=== PATIENT | female | born 1960 | race Caucasian/White ===

== ENCOUNTER → 2016-05-26 | Outpatient (CLI) | payer OTHER ==
[2016-05-26 13:38] LABS: ALT 46 U/L (9-52); AST 26 U/L (14-36); Alkaline Phosphatase 72 U/L (38-126); Anion Gap 10 mmol/L; Blood Urea Nitrogen 13 mg/dL (7-17); Calcium 9.9 mg/dL (8.4-10.2); Carbon Dioxide 28 mmol/L (22-30); Chloride 105 mmol/L (98-107); Cholesterol 194 mg/dL (<200); Glucose 99 mg/dL (74-99); HDL Cholesterol 75 mg/dL (40-60); Non-African American GFR(MDRD) >60 (>60 ml/min/1.73 sqM); Potassium 4.8 mmol/L (3.5-5.1); Sodium 143 mmol/L (137-145); Total Bilirubin 0.7 mg/dL (0.2-1.3); Total Protein 7.6 g/dL (6.3-8.2); Triglycerides 68 mg/dL (<150)
[2016-05-26 14:00] LABS: Basophils % (A) 0 %; CH 30.7; CHCM 33.3; Eosinophils # (A) 0.2 k/uL (0-0.7); Eosinophils % (A) 2 %; HCT 43.1 % (34.0-46.0); HDW 2.39; HGB 13.9 gm/dL (11.4-16.0); Luc # (Auto) 0.13; Luc % (Auto) 2; Lymphocytes # (A) 1.7 k/uL (1.0-4.8); Lymphocytes % (A) 19 %; MCH 29.8 pg (25.0-35.0); MCHC 32.3 g/dL (31.0-37.0); MCV 92.4 fL (80.0-100.0); Mean Platelet Volume 7.3; Monocytes # (A) 0.4 k/uL (0-1.0); Monocytes % (A) 4 %; Neutrophils # (A) 6.7 k/uL (1.3-7.7); Neutrophils % (A) 74 %; RBC 4.67 m/uL (3.80-5.40); WBC 9.1 k/uL (3.8-10.6); WBC (Perox) 9.26
== END | disposition home or self-care (01) ==
LOC: LABWHC1 12:19
PROVIDERS: ATTEND Physician Assistant
DX: E06.3 Autoimmune thyroiditis (principal); E03.9 Hypothyroidism, unspecified
CPT/HCPCS: 36415; 80053; 80061; 84439; 84443; 84480; 85025

== ENCOUNTER → 2016-12-14 | Outpatient (CLI) | payer OTHER ==
--- NOTE | 2016-12-15 14:36 | ECHOS ---
DATE OF SERVICE: 12/14/2016 TYPE OF REPORT: STRESS ECHOCARDIOGRAM INDICATIONS: Test is being done to evaluate cardiac status. The patient has history of chest pain and hypercholesterolemia. BASELINE HEART RATE: 75 BASELINE BLOOD PRESSURE: 161/93 MAXIMUM HEART RATE: 149 MAXIMUM BLOOD PRESSURE: 181/68 85% MPHR 141 100% MPHR 166 METS: 9.7 MAXIMUM STAGE REACHED: 3 TOTAL EXERCISE TIME: 8:00 Baseline EKG showed sinus rhythm with normal TN interval and normal QRS duration. Blood pressure at rest is 161/93 with pulse rate of 75. Patient walked on a [place] protocol for 8 minutes achieving a maximum rate of 149 with blood pressure of 180/61. Peak exercise showed about 0.5 to 1 mm J-point depression with upsloping ST segments in the inferolateral leads. These changes reverted back to normal within 3 to 4 minutes in the post exercise period. Patient did not experience any chest pain. FINAL IMPRESSION: 1. Borderline EKG changes which are not specific for ischemia. 2. Patient did not experience any chest pain. 3. No arrhythmias were detected. KARIME
== END ==
LOC: RADNMMAIN 10:55
PROVIDERS: ATTEND Family Medicine
DX: R07.9 Chest pain, unspecified (principal)
CPT/HCPCS: 93017

== ENCOUNTER → 2017-08-12 | Outpatient (CLI) | payer BC ==
--- NOTE | 2017-08-12 13:25 | CTL ---
EXAMINATION TYPE: CT Low Dose Lung DATE OF EXAM ORDERED: 08/12/2017 HISTORY: Personal history of tobacco usage. Lung cancer screening CT DLP: [address] CTDI: 2.52 mGy Automated exposure control for dose reduction was used. SCREENING VISIT: Initial. Baseline. COMPARISON: None TECHNIQUE: Low dose computed tomography scan was performed through the chest at 1 mm thick sections a nd reconstructed images in the coronal plane at [address] DIAGNOSTIC QUALITY: Satisfactory FINDINGS: LUNG NODULES: None. LUNGS: COPD: Severity: None Fibrosis: Severity: None Lymph nodes: No adenopathy Other findings: Right middle lobe pleural parenchymal scarring and minimal right basilar subsegmental atelectasis are noted. Lingular subsegmental atelectasis is also seen. RIGHT PLEURAL SPACE: Effusion: None Calcification: None Thickening: None Pneumothorax: None LEFT PLEURAL SPACE: Effusion: None Calcification: None Thickening: None Pneumothorax: None HEART: Heart Size: Nonenlarged. Ascending thoracic aorta is also within normal limits measuring 2.4 cm. Coronary calcification: Moderate in the left anterior descending coronary artery Pericardial effusion: None OTHER FINDINGS: Upper abdomen: Unremarkable limited unenhanced images Bony thorax: Minimal multilevel degenerative change Supraclavicular region: No adenopathy IMPRESSION: 1. No pulmonary nodules or adenopathy within the chest. 2. Moderate coronary calcifications in the left anterior descending coronary artery, marker for coron sean disease. FOLLOW UP CT CHEST RECOMMENDATION: Annual low dose chest CT screening exam is recommended as well as tobacco cessation. CT LUNG RAD: Lung-Rad 1 Negative
== END | disposition home or self-care (01) ==
LOC: RADCTMAIN 12:37
PROVIDERS: ATTEND Family Medicine
DX: Z12.2 Encounter for screening for malignant neoplasm of respiratory organs (principal); I25.10 Atherosclerotic heart disease of native coronary artery without angina pectoris; Z87.891 Personal history of nicotine dependence

== ENCOUNTER → 2017-10-21 | Outpatient (CLI) | payer BC ==
--- NOTE | 2017-10-22 11:35 | MM ---
Reason for exam: screening (asymptomatic). Last mammogram was performed 2 years ago. History: Patient is postmenopausal and is nulliparous. Taking estrogen for 7 months. Physical Findings: A clinical breast exam by your physician is recommended on an annual basis and results should be correlated with mammographic findings. MG Screening Mammo w CAD Bilateral CC and MLO view(s) were taken. Prior study comparison: October 07, 2015, bilateral MG 3d screening mammo w/cad. January 31, 2012, [facility] DIGITAL LEFT BREAST MAMMOGRAM w/CAD. There are scattered fibroglandular densities. No suspicious abnormality. No significant changes when compared with prior studies. ASSESSMENT: Negative, BI-RAD 1 RECOMMENDATION: Routine screening mammogram of both breasts in 1 year.
== END | disposition home or self-care (01) ==
LOC: RADMAMWWP 10:13
PROVIDERS: ATTEND Family Medicine
DX: Z12.31 Encounter for screening mammogram for malignant neoplasm of breast (principal); Z80.3 Family history of malignant neoplasm of breast
CPT/HCPCS: 77067

== ENCOUNTER → 2019-04-24 | Outpatient (CLI) | payer BC ==
--- NOTE | 2019-04-27 12:05 | MM ---
Reason for exam: screening (asymptomatic). Last mammogram was performed 1 year and 6 months ago. History: Patient is postmenopausal and is nulliparous. Took estrogen for 3 years beginning at age 54. Physical Findings: A clinical breast exam by your physician is recommended on an annual basis and results should be correlated with mammographic findings. MG 3D Screening Mammo W/Cad Bilateral CC and MLO view(s) were taken. Prior study comparison: October 21, 2017, bilateral MG screening mammo w CAD. October 07, 2015, bilateral MG 3d screening mammo w/cad. There are scattered fibroglandular densities. No suspicious abnormality. No significant changes when compared with prior studies. ASSESSMENT: Negative, BI-RAD 1 RECOMMENDATION: Routine screening mammogram of both breasts in 1 year.
== END ==
LOC: RADMAMWWP 11:04
PROVIDERS: ATTEND Family Medicine
DX: Z12.31 Encounter for screening mammogram for malignant neoplasm of breast (principal)
CPT/HCPCS: 77063; 77067

== ENCOUNTER → 2021-04-18 | Outpatient (CLI) | payer OTHER ==
--- NOTE | 2021-04-18 09:44 | BD ---
EXAMINATION TYPE: Axial Bone Density DATE OF EXAM: 04/18/2021 COMPARISON: NONE CLINICAL HISTORY: 61 YR OLD FEMALE.....ICD-10 CODE: Z78.0 POST MENOPAUSAL Height: 60.5 Weight: 157 FRAX RISK QUESTIONS: 3. Menopause before 45: AT 47 RISK FACTORS HISTORY OF: Diet low in dairy products/other sources of calcium: YES Postmenopausal woman: YES, AT ABOUT 47 YRS OLD Take estrogen and/or progesterone medications: YES, FOR ABOUT COUPLE MONTHS, THEN STOPPED Hyperparathyroidism: NO Adrenal Insufficiency: NO MEDICATIONS: Thyroid Medications: YES, SYNTHROID, FOR ABOUT 7 YRS Additional Medications: BP MEDS, STATIN FOR CHOLESTEROL, METFORMIN, VIT D AND CALCIUM Additional History: HYPERTENSION, CHOLESTEROL, DIABETIC, THYROID EXAM MEASUREMENTS: Bone mineral densitometry was performed using the [employer] System. Bone mineral density as measured about the Lumbar spine is: ----- L1-L4(G/cm2): 1.298 T Score Values are as follows: ----- L1: 1.0 ----- L2: 0.2 ----- L3: -0.4 ----- L4: 2.6 ----- L1-L4: 1.0 Bone mineral density FIRST DEXA......BASELINE STUDY Bone mineral density about the R hip (g/cm2): 0.954 Bone mineral density about the L hip (g/cm2): 1.026 T Score values are as follows: -----R Neck: -1.1 -----L Neck: -0.9 -----R Total: -0.4 -----L Total: 0.1 Bone mineral density BASELINE STUDY FRAX%s: THERE IS A 6.8% CHANCE FOR A MAJOR OSTEOPOROTIC FX AND A 0.4% FOR HIP......PROBABILITY FOR FX IN 10 YRS TIME IMPRESSION: No evidence for osteoporosis or osteopenia. NOTE: T-SCORE=SD OF THE YOUNG ADULT MEAN.
== END | disposition home or self-care (01) ==
LOC: RADMAMWWP 08:25
PROVIDERS: ATTEND Family Medicine
DX: Z12.31 Encounter for screening mammogram for malignant neoplasm of breast (principal); Z78.0 Asymptomatic menopausal state
CPT/HCPCS: 77063; 77067; 77080

== ENCOUNTER → 2022-04-19 | Outpatient (CLI) | payer OTHER ==
--- NOTE | 2022-04-20 09:16 | MM ---
Reason for Exam: Screening (asymptomatic). Last screening mammogram was performed 12 month(s) ago. Patient History: Menarche at age 14. Patient has no children. Left ovary removed at age 49. Right ovary removed at age 49. Hysterectomy at age 49. Postmenopausal. Estrogen for 3 years from age 54 until age 57. Risk Values: Charisse 5 year model risk: 1.6%. NCI Lifetime model risk: 8.1%. Prior Study Comparison: 10/21/2017 Bilateral Screening Mammogram, [facility]. 04/24/2019 Bilateral Screening Mammogram, [facility]. 04/18/2021 Bilateral Screening Mammogram, [facility]. Tissue Density: There are scattered fibroglandular densities. Findings: Analyzed By CAD. There is no suspicious group of microcalcifications or new suspicious mass in either breast. Benign calcifications within both breasts. No significant change from prior exams. Overall Assessment: Benign, BI-RAD 2 Management: Screening Mammogram of both breasts in 1 year. A clinical breast exam by your physician is recommended on an annual basis and results should be correlated with mammographic findings. Electronically signed and approved by: Alexander Rowe D.O.
== END | disposition home or self-care (01) ==
LOC: RADMAMWWP 09:03
PROVIDERS: ATTEND Family Medicine
DX: Z12.31 Encounter for screening mammogram for malignant neoplasm of breast (principal); Z78.0 Asymptomatic menopausal state
CPT/HCPCS: 77063; 77067

== ENCOUNTER 2023-04-18 10:20 | Inpatient (IN) | payer OTHER ==
--- NOTE | 2023-04-18 10:34 | ED ---
General Adult HPI - General Source: patient Mode of arrival: ambulatory Limitations: no limitations <Armani Pimentel - Last Filed: 04/18/23 10:54> <Hayden Curiel - Last Filed: 04/18/23 18:41> - General Stated complaint: Right side body Numbness Time Seen by Provider: 04/18/23 10:32 - History of Present Illness Initial comments: 63-year-old female presenting to the ED with a chief complaint of paresthesias. Patient states for the past 2 weeks has had numbness/tingling of her right arm and right leg. Also noticed having the same sensation in both of her feet. Also notes some back pain. Additionally she states over the past 2 weeks she has been feeling off balance. States she sometimes has been stumbling. Denies any recent injury or trauma. No incontinence or saddle anesthesia. (Armani Pimentel) 23-year-old female presenting with flank pain radiating into the right thigh with associated numbness. Patient also complains of numbness into her right arm. Her sister had noticed that her speech was somewhat slurred. Symptoms have been present for approximately 2 weeks. At the time my evaluation speech does seem slurred. She denies focal weakness in the time my evaluation. (Hayden Curiel) - Related Data Home Medications Medication Instructions Recorded Confirmed Levothyroxine Sodium [Levoxyl] 112 mcg PO DAILY 09/28/15 04/18/23 Losartan Potassium 100 mg PO DAILY 04/18/23 04/18/23 Metoprolol Tartrate [Lopressor] 25 mg PO DAILY 04/18/23 04/18/23 Rosuvastatin [Crestor] 20 mg PO DAILY 04/18/23 04/18/23 amLODIPine [Norvasc] 2.5 mg PO DAILY 04/18/23 04/18/23 hydroCHLOROthiazide [Hydrodiuril] 25 mg PO DAILY 04/18/23 04/18/23 metFORMIN HCL [Glucophage] 500 mg PO BID 04/18/23 04/18/23 Allergies Allergy/AdvReac Type Severity Reaction Status Date / Time No Known Allergies Allergy Verified 04/18/23 17:19 Review of Systems ROS Other: All systems not noted in ROS Statement are negative. <Armani Pimentel - Last Filed: 04/18/23 10:54> ROS Other: All systems not noted in ROS Statement are negative. <Hayden Curiel - Last Filed: 04/18/23 18:41> ROS Statement: Those systems with pertinent positive or pertinent negative responses have been documented in the HPI. Past Medical History Past Medical History: Hyperlipidemia, Hypertension, Thyroid Disorder History of Any Multi-Drug Resistant Organisms: None Reported Past Surgical History: Hysterectomy Past Psychological History: No Psychological Hx Reported Smoking Status: Never smoker Past Alcohol Use History: None Reported Past Drug Use History: None Reported <Armani Pimentel - Last Filed: 04/18/23 10:54> General Exam Limitations: no limitations <Armani Pimentel - Last Filed: 04/18/23 10:54> General appearance: alert, in no apparent distress Head exam: Present: atraumatic, normocephalic Eye exam: Present: normal appearance, PERRL ENT exam: Present: normal exam Neck exam: Present: normal inspection. Absent: tenderness, meningismus Respiratory exam: Present: normal lung sounds bilaterally. Absent: respiratory distress, wheezes Cardiovascular Exam: Present: regular rate, normal rhythm GI/Abdominal exam: Present: soft. Absent: distended, tenderness, guarding Extremities exam: Present: normal inspection Neurological exam: Present: alert, motor sensory deficit (Mild dysarthria, NIH of 1) Psychiatric exam: Present: normal affect, normal mood Skin exam: Present: warm, dry, intact. Absent: cyanosis, diaphoretic <Hayden Curiel - Last Filed: 04/18/23 18:41> Course Vital Signs 04/18/23 04/18/23 10:26 17:02 Temperature 97.7 F Pulse Rate 62 55 L Respiratory 18 14 Rate Blood Pressure 152/83 155/84 O2 Sat by Pulse 97 99 Oximetry Medical Decision Making <Armani Pimentel - Last Filed: 04/18/23 10:54> - Lab Data Result diagrams: 04/18/23 17:00 04/18/23 10:45 <Hayden Curiel - Last Filed: 04/18/23 18:41> - Medical Decision Making Quicknote portion performed. Signed Armani Pimentel PA-C (Armani Pimentel) Was pt. sent in by a medical professional or institution ([facility], [facility], urgent care, hospital, or fdc...) When possible be specific @ -No Did you speak to anyone other than the patient for history (EMS, parent, family, police, friend...)? What history was obtained from this source @ -No Did you review nursing and triage notes (agree or disagree)? Why? @ -I reviewed and agree with nursing and triage notes Were old charts reviewed (outside hosp., previous admission, EMS record, old EKG, old radiological studies, urgent care reports/EKG's, fdc records)? Report findings @ -No old charts were reviewed Differential Diagnosis (chest pain, altered mental status, abdominal pain women, abdominal pain men, vaginal bleeding, weakness, fever, dyspnea, syncope, headache, dizziness, GI bleed, back pain, seizure, CVA, palpatations, mental health, musculoskeletal)? @ -[Differential CVA Ischemic stroke, hemorrhagic stroke, brain tumor, atypical migraine, Wernicke's encephalopathy, seizure, multiple sclerosis, meningitis, encephalitis, hypoglycemia, Guillain-Garcia, electrolytes disturbance, myasthenia gravis.... This is not meant to be an all-inclusive list EKG interpreted by me (3pts min.). @ -E.g.: Sinus bradycardia rate of 57, DC interval 157, QRS duration 90, QTC [address] segment elevation. X-rays interpreted by me (1pt min.). @ -None done CT interpreted by me (1pt min.). @ -[CT brain negative for intracranial hemorrhage or mass effect, CT angiogram showing left MCA occlusion U/S interpreted by me (1pt. min.). @ -None done What testing was considered but not performed or refused? (CT, X-rays, U/S, labs)? Why? @ -None What meds were considered but not given or refused? Why? @ -None Did you discuss the management of the patient with other professionals (professionals i.e. [facility], [employer] [facility], lab, RT, psych nurse, social services analyst, transition mgr rn, teacher, public safety officer, case making machine operator)? Give summary EMH Was smoking cessation discussed for >3mins.? @ -No Was critical care preformed (if so, how long)? @ -No Were there social determinants of health that impacted care today? How? (Homelessness, low income, unemployed, alcoholism, drug addiction, transportation, low edu. Level, literacy, decrease access to med. care, custodial, rehab)? @ -No Was there de-escalation of care discussed even if they declined (Discuss DNR or withdrawal of care, Hospice)? DNR status @ -No What co-morbidities impacted this encounter? (DM, HTN, Smoking, COPD, CAD, Cancer, CVA, ARF, Chemo, Hep., AIDS, mental health diagnosis, sleep apnea, morbid obesity)? @ -None Was patient admitted / discharged? Hospital course, mention meds given and route, prescriptions, significant lab abnormalities, going to OR and other pertinent info. @ -63-year-old female presents with right-sided numbness, mild dysarthria. Patient states that her sister noticed that dysarthria on and that the remainder of her symptoms have been present for approximately 2 weeks. She's taken for CT and CT angiography. CT is negative for intracranial hemorrhage or mass effect, CT angiography shows a left MCA occlusion. Given the duration of her symptoms she is not a candidate for intervention or TPA. She will be admitted for further stroke evaluation. He started on full strength aspirin and statin. Undiagnosed new problem with uncertain prognosis? @ -No Drug Therapy requiring intensive monitoring for toxicity (Heparin, Nitro, Insulin, Cardizem)? @ -No Were any procedures done? @ -No Diagnosis/symptom? @CVA Acute, or Chronic, or Acute on Chronic? @ -Acute Uncomplicated (without systemic symptoms) or Complicated (systemic symptoms)? @ -Complicated Side effects of treatment? @ -No Exacerbation, Progression, or Severe Exacerbation? @ -No Poses a threat to life or bodily function? How? (Chest pain, USA, SD, pneumonia, PE, COPD, DKA, ARF, appy, cholecystitis, CVA, Diverticulitis, Homicidal, Suicidal, threat to staff... and all critical care pts) @ -[Yes, CVA (Hayden Curiel) - Lab Data Lab Results 04/18/23 04/18/23 04/18/23 Range/Units 10:45 10:45 10:45 WBC (3.8-10.6) k/uL RBC (3.80-5.40) m/uL Hgb (11.4-16.0) gm/dL Hct (34.0-46.0) % MCV (80.0-100.0) fL MCH (25.0-35.0) pg MCHC (31.0-37.0) g/dL RDW (11.5-15.5) % Plt Count (150-450) k/uL MPV Neutrophils % % Lymphocytes % % Monocytes % % Eosinophils % % Basophils % % Neutrophils # (1.3-7.7) k/uL Lymphocytes # (1.0-4.8) k/uL Monocytes # (0-1.0) k/uL Eosinophils # (0-0.7) k/uL Basophils # (0-0.2) k/uL PT (10.0-12.5) sec INR (<1.2) APTT (22.0-30.0) sec Sodium 138 (137-145) mmol/L Potassium 4.3 (3.5-5.1) mmol/L Chloride 97 L (98-107) mmol/L Carbon Dioxide 25 (22-30) mmol/L Anion Gap 16 mmol/L BUN 21 H (7-17) mg/dL Creatinine 0.59 (0.52-1.04) mg/dL Est GFR (CKD-EPI)AfAm >90 (>60 ml/min/1.73 sqM) Est GFR (CKD-EPI)NonAf >90 (>60 ml/min/1.73 sqM) Glucose 122 H (74-99) mg/dL Calcium 9.9 (8.4-10.2) mg/dL Total Bilirubin 0.7 (0.2-1.3) mg/dL AST 36 (14-36) U/L ALT 26 (4-34) U/L Alkaline Phosphatase 75 (38-126) U/L Troponin I <0.012 (0.000-0.034) ng/mL Total Protein 7.8 (6.3-8.2) g/dL Albumin 4.6 (3.5-5.0) g/dL Urine Color Colorless Urine Appearance Clear (Clear) Urine pH 5.5 (5.0-8.0) Ur Specific [place] 1.015 (1.001-1.035) Urine Protein Negative (Negative) Urine Glucose (UA) Negative (Negative) Urine Ketones Negative (Negative) Urine Blood Negative (Negative) Urine Nitrite Negative (Negative) Urine Bilirubin Negative (Negative) Urine Urobilinogen <2.0 (<2.0) mg/dL Ur Leukocyte Esterase Moderate H (Negative) Urine RBC 2 (0-5) /hpf Urine WBC 7 H (0-5) /hpf Ur Squamous Epith Cells 5 H (0-4) /hpf Urine Mucus Rare H (None) /hpf 04/18/23 04/18/23 Range/Units 17:00 17:00 WBC 9.3 (3.8-10.6) k/uL RBC 5.18 (3.80-5.40) m/uL Hgb 15.4 (11.4-16.0) gm/dL Hct 45.1 (34.0-46.0) % MCV 87.1 (80.0-100.0) fL MCH 29.7 (25.0-35.0) pg MCHC 34.1 (31.0-37.0) g/dL RDW 12.8 (11.5-15.5) % Plt Count 344 (150-450) k/uL MPV 8.2 Neutrophils % 61 % Lymphocytes % 28 % Monocytes % 6 % Eosinophils % 3 % Basophils % 1 % Neutrophils # 5.7 (1.3-7.7) k/uL Lymphocytes # 2.6 (1.0-4.8) k/uL Monocytes # 0.5 (0-1.0) k/uL Eosinophils # 0.3 (0-0.7) k/uL Basophils # 0.1 (0-0.2) k/uL PT 10.2 (10.0-12.5) sec INR 0.9 (<1.2) APTT 24.1 (22.0-30.0) sec Sodium (137-145) mmol/L Potassium (3.5-5.1) mmol/L Chloride (98-107) mmol/L Carbon Dioxide (22-30) mmol/L Anion Gap mmol/L BUN (7-17) mg/dL Creatinine (0.52-1.04) mg/dL Est GFR (CKD-EPI)AfAm (>60 ml/min/1.73 sqM) Est GFR (CKD-EPI)NonAf (>60 ml/min/1.73 sqM) Glucose (74-99) mg/dL Calcium (8.4-10.2) mg/dL Total Bilirubin (0.2-1.3) mg/dL AST (14-36) U/L ALT (4-34) U/L Alkaline Phosphatase (38-126) U/L Troponin I (0.000-0.034) ng/mL Total Protein (6.3-8.2) g/dL Albumin (3.5-5.0) g/dL Urine Color Urine Appearance (Clear) Urine pH (5.0-8.0) Ur Specific [place] (1.001-1.035) Urine Protein (Negative) Urine Glucose (UA) (Negative) Urine Ketones (Negative) Urine Blood (Negative) Urine Nitrite (Negative) Urine Bilirubin (Negative) Urine Urobilinogen (<2.0) mg/dL Ur Leukocyte Esterase (Negative) Urine RBC (0-5) /hpf Urine WBC (0-5) /hpf Ur Squamous Epith Cells (0-4) /hpf Urine Mucus (None) /hpf Disposition <Armani Pimentel - Last Filed: 04/18/23 10:54> Is patient prescribed a controlled substance at d/c from ED?: No Time of Disposition: 18:41 <Hayden Curiel - Last Filed: 04/18/23 18:41> Clinical Impression: Cerebrovascular accident (CVA) Disposition: ADMITTED IP TO THIS HOSP Condition: Stable Referrals: Rosie Martinez DO [Primary Care Provider] - 1-2 days
[2023-04-18 11:58] LABS: ALT 26 U/L (4-34); AST 36 U/L (14-36); African American GFR (CKD) >90 (>60 ml/min/1.73 sqM); Albumin 4.6 g/dL (3.5-5.0); Alkaline Phosphatase 75 U/L (38-126); Anion Gap 16 mmol/L; Blood Urea Nitrogen 21 mg/dL (7-17); Calcium 9.9 mg/dL (8.4-10.2); Carbon Dioxide 25 mmol/L (22-30); Chloride 97 mmol/L (98-107); Glucose 122 mg/dL (74-99); Non-African American GFR(CKD) >90 (>60 ml/min/1.73 sqM); Sodium 138 mmol/L (137-145); Total Bilirubin 0.7 mg/dL (0.2-1.3); Total Protein 7.8 g/dL (6.3-8.2)
[2023-04-18 12:23] LABS: Potassium 4.3 mmol/L (3.5-5.1)
--- NOTE | 2023-04-18 16:46 | XR ---
EXAMINATION TYPE: XR thoracic spine 3 views complete DATE OF EXAM: 04/18/2023 Comparison: None Clinical History: 63-year-old female with upper back pain and right-sided weakness Findings: 12 thoracic vertebral bodies. All pedicles are visualized. Moderate degenerative disc disease and end plate spondylosis throughout the mid thoracic spine. Vertebral body heights are preserved and alignme nt is maintained. Impression: Moderate degenerative disc disease throughout especially mid thoracic spine. No vertebral compression collapse or malalignment.
[2023-04-18 17:13] LABS: Basophils # (A) 0.1 k/uL (0-0.2); Basophils % (A) 1 %; Eosinophils # (A) 0.3 k/uL (0-0.7); Eosinophils % (A) 3 %; HCT 45.1 % (34.0-46.0); HGB 15.4 gm/dL (11.4-16.0); Lymphocytes # (A) 2.6 k/uL (1.0-4.8); Lymphocytes % (A) 28 %; MCH 29.7 pg (25.0-35.0); MCHC 34.1 g/dL (31.0-37.0); MCV 87.1 fL (80.0-100.0); Mean Platelet Volume 8.2; Monocytes # (A) 0.5 k/uL (0-1.0); Monocytes % (A) 6 %; Neutrophils # (A) 5.7 k/uL (1.3-7.7); Neutrophils % (A) 61 %; Platelet Count 344 k/uL (150-450); RBC 5.18 m/uL (3.80-5.40); RDW 12.8 % (11.5-15.5); WBC 9.3 k/uL (3.8-10.6)
[2023-04-18 17:15] LABS: Appearance,Urine Clear (Clear); Bilirubin,Urine Negative (Negative); Blood,Urine Negative (Negative); Color,Urine Colorless; Glucose,Urine (UA) Negative (Negative); Ketones,Urine Negative (Negative); Leukocyte Esterase,Urine Moderate (Negative); Mucus,Urine Rare /hpf; Nitrite,Urine Negative (Negative); PH, Urine 5.5 (5.0-8.0); Protein,Urine Negative (Negative); RBC,Urine 2 /hpf (0-5); Specific Gravity,Urine 1.015 (1.001-1.035); Squamous Epithelial Cell,Urine 5 /hpf (0-4); Urobilinogen,Urine <2.0 mg/dL (<2.0); WBC,Urine 7 /hpf (0-5)
[2023-04-18 17:29] LABS: INR 0.9 (<1.2); Partial Thromboplastin Time 24.1 sec (22.0-30.0); Prothrombin Time 10.2 sec (10.0-12.5)
--- NOTE | 2023-04-18 17:59 | CT ---
EXAMINATION TYPE: CT brain wo con DATE OF EXAM: 04/18/2023 COMPARISON: None HISTORY: 63-year-old female with paresthesias, weakness, dizziness TECHNIQUE: Examination was done in axial plane without intravenous contrast. Coronal and sagittal r econstructions performed. CT DLP: 1089.6 mGycm Automated exposure control for dose reduction was used. FINDINGS: There is no evidence of acute intracranial hemorrhage, acute ischemic changes, mass, mass-effect, or extra-axial fluid collection. There is no effacement of cerebral sulci or basal subarachnoid cister ns. There is no hydrocephalus. There is no midline shift. Orozco-white matter distinction is preserv ed. 1.2 cm mucosal retention cyst left maxillary sinus. Orbits and globes are intact. Mastoid air cells w ell pneumatized. Trace mucosal thickening ethmoid air cells. IMPRESSION: No acute intracranial abnormality seen.
--- NOTE | 2023-04-18 18:25 | CT ---
EXAMINATION TYPE: CT angio head neck DATE OF EXAM: 04/18/2023 COMPARISON: CT scan same day HISTORY: 63-year-old female weakness, dizziness TECHNIQUE: Contiguous axial scanning of the head and neck performed with IV Contrast, patient injecte d with 65 cc mL of Isovue 300. Coronal and sagittal MIP reconstructions performed. 3-D reconstruction s generated on a dedicated independent workstation. CT DLP: 386.7 mGycm Automated exposure control for dose reduction was used. FINDINGS: Neck: Mild emphysematous changes in the visualized upper lungs. Conventional branching anatomy. There appears to be mild narrowing at the origin of the brachiocephal ic artery. The left vertebral artery is slightly more dominant but both vertebral arteries are otherwise patent throughout the course. The bilateral common carotid arteries are patent. There is mild noncalcified plaque along the right carotid bulb contributing to mild, less than 25% pr oximal right ICA narrowing. NASCET criteria was utilized. Otherwise, the bilateral internal carotid arteries are patent. Head: Dominant left vertebral artery. Otherwise, both vertebral and basilar arteries as well as the remaind er of the posterior circulation appear patent. Scattered mild atherosclerotic calcifications throughout the carotid siphon. There is cut off of the left MCA at its origin. Remainder of the anterior circulation appears patent. No aneurysmal change is seen. IMPRESSION: HEAD: 1. LEFT MCA OCCLUSION AT ITS ORIGIN. CALLED TO DR. REYES IN THE ER AT 6:20 PM. NECK: 2. MILD, LESS THAN 25% PROXIMAL RIGHT ICA STENOSIS.
[2023-04-18] MEDS ORDERED: ASPIRIN 325 MG TAB PO STA (18:30)
[2023-04-18] MEDS: SODIUM CHLORIDE 0.9% 1,000 ML IV SCH (18:56)
[2023-04-18] MEDS: ATORVASTATIN 80 MG TAB PO SCH (21:59)
--- NOTE | 2023-04-19 07:20 | P.HPIM ---
History of Present Illness This is a pleasant 63 years old female with past medical history of hypertension and hyperlipidemia She presents because of numbness in her right side including both right arm and leg that's going on for 2 weeks on and off associated with back pain and occasional left foot drop while she is working as she describes She denies weakness on the right side, she denies double vision, blurred vision or speech problem. No headache or dizziness. She went to see her PCP who referred her to the hospital Currently she has only numbness in her right hand She denies change in urine or bowel habits or fever. She denies smoking alcohol or illicit drugs. Vitals are stable Labs reviewed she has unremarkable CBC, INR, BMP and liver enzymes. 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 EKG shows sinus bradycardia at [address] T changes, QTC 41. Thoracic spine moderate degenerative disc disease with no compression of fracture Review of Systems Review of systems CONSTITUTIONAL: No fever, no malaise, no fatigue. HEENT: No recent visual problems or hearing problems. Denied any sore throat. CARDIOVASCULAR: No orthopnea, PND, no palpitations, no syncope. PULMONARY: No shortness of breath, no cough, no hemoptysis. GASTROINTESTINAL: No diarrhea, no nausea, no vomiting, no abdominal pain. Normoactive bowel sounds. NEUROLOGICAL: No headaches, no weakness, no numbness. HEMATOLOGICAL: Denies any bleeding or petechiae. GENITOURINARY: Denies any burning micturition, frequency, or urgency. MUSCULOSKELETAL/RHEUMATOLOGICAL: Denies any joint pain, swelling, or any muscle pain. ENDOCRINE: Denies any polyuria or polydipsia. Past Medical History Past Medical History: Hyperlipidemia, Hypertension, Thyroid Disorder History of Any Multi-Drug Resistant Organisms: None Reported Past Surgical History: Hysterectomy Past Psychological History: No Psychological Hx Reported Smoking Status: Never smoker Past Alcohol Use History: None Reported Past Drug Use History: None Reported Medications and Allergies Home Medications Medication Instructions Recorded Confirmed Type Levothyroxine Sodium [Levoxyl] 112 mcg PO DAILY 09/28/15 04/18/23 History Losartan Potassium 100 mg PO DAILY 04/18/23 04/18/23 History Metoprolol Tartrate [Lopressor] 25 mg PO DAILY 04/18/23 04/18/23 History Rosuvastatin [Crestor] 20 mg PO DAILY 04/18/23 04/18/23 History amLODIPine [Norvasc] 2.5 mg PO DAILY 04/18/23 04/18/23 History hydroCHLOROthiazide [Hydrodiuril] 25 mg PO DAILY 04/18/23 04/18/23 History metFORMIN HCL [Glucophage] 500 mg PO BID 04/18/23 04/18/23 History Allergies Allergy/AdvReac Type Severity Reaction Status Date / Time No Known Allergies Allergy Verified 04/18/23 17:19 Physical Exam Vitals: Vital Signs Temp Pulse Resp BP Pulse Ox 04/19/23 05:00 59 L 18 132/75 92 L 04/18/23 22:17 66 16 121/60 99 04/18/23 21:20 60 16 169/83 98 04/18/23 17:02 55 L 14 155/84 99 04/18/23 10:26 97.7 F 62 18 152/83 97 Intake and Output 04/18/23 04/19/23 04/19/23 22:59 06:59 14:59 Other: Weight 72.575 kg GENERAL: The patient is alert and oriented x3, not in any acute distress. Well developed, well nourished. HEENT: Pupils are round and equally reacting to light. EOMI. No scleral icterus. No conjunctival pallor. Normocephalic, atraumatic. No pharyngeal erythema. No thyromegaly. CARDIOVASCULAR: S1 and S2 present. No murmurs, rubs, or gallops. PULMONARY: Chest is clear to auscultation, no wheezing , no crackles. ABDOMEN: Soft, nontender, nondistended, normoactive bowel sounds. No palpable organomegaly. MUSCULOSKELETAL: No joint swelling or deformity. EXTREMITIES: No cyanosis, clubbing, or pedal edema. NEUROLOGICAL: Gross neurological examination did not reveal any focal deficits. SKIN: No rashes. no petechiae. Results CBC & Chem 7: 04/18/23 17:00 04/18/23 10:45 Labs: Abnormal Lab Results - Last 24 Hours (Table) 04/18/23 04/18/23 Range/Units 10:45 10:45 Chloride 97 L (98-107) mmol/L BUN 21 H (7-17) mg/dL Glucose 122 H (74-99) mg/dL Ur Leukocyte Esterase Moderate H (Negative) Urine WBC 7 H (0-5) /hpf Ur Squamous Epith Cells 5 H (0-4) /hpf Urine Mucus Rare H (None) /hpf Thrombosis Risk Factor Assmnt - Choose All That Apply Any of the Below Risk Factors Present?: Yes Each Factor Represents 1 point: Obesity (BMI >25) Other Risk Factors: Yes Each Risk Factor Represents 2 Points: Age 61-74 years Each Risk Factor Represents 5 Points: Stroke (< 1 month) Thrombosis Risk Factor Assessment Total Risk Factor Score: 8 Thrombosis Risk Factor Assessment Level: High Risk Assessment and Plan Assessment: Right arm and leg numbness with occlusion of the left MCA artery at its origin Back pain with x-ray showing degenerative disc disease Hypertension Hyperlipidemia Plan: Continue with aspirin 325 mg Resume metoprolol for now and monitor blood pressure Follow-up MRI of the brain and echocardiogram Neurology consult Check TSH and hemoglobin A1c Labs and medication were reviewed.. Continue same treatment. Continue with sym ptomatic treatment. Resume home medication. Monitor labs and vitals. DVT and GI prophylaxis. Further recommendations as per clinical course of the patient DVT prophylaxis: Subcutaneous heparin GI Prophylaxis: Pepcid PT/OT: Pending Prognosis is guarded
[2023-04-19 07:46] LABS: African American GFR (CKD) >90 (>60 ml/min/1.73 sqM); Anion Gap 12 mmol/L; Blood Urea Nitrogen 16 mg/dL (7-17); Calcium 9.6 mg/dL (8.4-10.2); Carbon Dioxide 26 mmol/L (22-30); Chloride 101 mmol/L (98-107); Glucose 163 mg/dL (74-99); Non-African American GFR(CKD) >90 (>60 ml/min/1.73 sqM); Potassium 3.5 mmol/L (3.5-5.1); Sodium 139 mmol/L (137-145)
[2023-04-19 08:53] LABS: Chol/HDL Ratio 4.29 Ratio; LDL Cholesterol,Calculated 103.1 mg/dL (0.0-131.0)
[2023-04-19] MEDS ORDERED: metFORMIN 500 MG TAB PO SCH (09:00)
[2023-04-19] MEDS: ASPIRIN 325 MG TAB PO SCH (10:49)
[2023-04-19] MEDS: METOPROLOL TARTRATE 25 MG TAB PO SCH (10:49)
[2023-04-19] MEDS: LEVOTHYROXINE 112 MCG TAB PO SCH (10:49)
[2023-04-19] MEDS: HEPARIN SODIUM,PORCINE 5,000 UNIT/ML 1 ML VIAL SQ SCH ×2 (10:51→20:41)
[2023-04-19] MEDS: FAMOTIDINE 20 MG/2 ML VIAL IV SCH ×2 (10:53→20:41)
--- NOTE | 2023-04-19 12:15 | P.CNNES ---
History of Present Illness Consult date: 04/19/23 Requesting physician: Hayden Curiel Reason for Consult: cva History of Present Illness: This is a 63-year-old woman presented emergency department because of right- sided numbness, unsteady gait for the past 2 weeks. Patient noticed about 2 weeks ago she had sudden onset right-sided numbness with the tingling but mostly numbness as well as that she felt her gait was unsteady. She's having a posterior mid back pain that feels that the sharp pain. She also feels the top of the left foot at the skating on the floor when she walks. She denies of any urinary incontinence or bowel incontinence. Denies of any back pain. Denies of any visual disturbance, focal weakness. Denies of any neck pain. Denies of any fever. Denies of having any history of stroke. She is not on any antiplatelet. She stated that she did not seek any medical attention because of multiple reason in which an she was told I one of her friends that could be medication related from the statin and another was that she was trying to avoid physicians. Some of the workup during his hospital visit consisted of: CBC with differential is unremarkable Lipid panel is tried to start 190, cholesterol is 184, LDLs 103 and HDL is 42 TSH is 3.560 Hemoglobin A1c is 7.70. Calcium, sodium creatinine are within normal limits CT of the head is reported as no acute intracranial abnormality seen. I personally reviewed the CT and agree with the report. CT angiography of the neck is reported as mild less than 25 walks a normal right ICA stenosis CT angiography of the head is reported as left MCA occlusion at the origin. Per ED team patient is not a candidate for TPA because of duration of her symptoms. She according to her her symptoms began 2 weeks ago and the risk outweighed the benefits. Also per the ED team, no intervention because of the duration of the symptoms. Review of Systems Review of system: The 12 point system was reviewed and apparent positive and negative per HPI. Past Medical History Past Medical History: Hyperlipidemia, Hypertension, Thyroid Disorder History of Any Multi-Drug Resistant Organisms: None Reported Past Surgical History: Hysterectomy Past Psychological History: No Psychological Hx Reported Smoking Status: Never smoker Past Alcohol Use History: None Reported Past Drug Use History: None Reported Medications and Allergies Home Medications Medication Instructions Recorded Confirmed Type Levothyroxine Sodium [Levoxyl] 112 mcg PO DAILY 09/28/15 04/18/23 History Losartan Potassium 100 mg PO DAILY 04/18/23 04/18/23 History Metoprolol Tartrate [Lopressor] 25 mg PO DAILY 04/18/23 04/18/23 History Rosuvastatin [Crestor] 20 mg PO DAILY 04/18/23 04/18/23 History amLODIPine [Norvasc] 2.5 mg PO DAILY 04/18/23 04/18/23 History hydroCHLOROthiazide [Hydrodiuril] 25 mg PO DAILY 04/18/23 04/18/23 History metFORMIN HCL [Glucophage] 500 mg PO BID 04/18/23 04/18/23 History Allergies Allergy/AdvReac Type Severity Reaction Status Date / Time No Known Allergies Allergy Verified 04/18/23 17:19 Physical Examination - Vital Signs Vital Signs: Vital Signs Pulse Resp BP Pulse Ox 04/19/23 10:45 63 18 136/85 95 04/19/23 05:00 59 L 18 132/75 92 L 04/18/23 22:17 66 16 121/60 99 04/18/23 21:20 60 16 169/83 98 04/18/23 17:02 55 L 14 155/84 99 Intake and Output 04/18/23 04/19/23 04/19/23 22:59 06:59 14:59 Other: Weight 72.575 kg GENERAL: The patient is lying in bed and is not in acute distress. NEUROLOGICAL: Higher mental function: The patient is awake, alert, oriented to self, place and time. Patient is following commands. No aphasia and no neglect. Cranial nerves: The pupils are round, equal and reactive to light and accommodation. Visual crane are full to confrontation throughout. Extraocular movement is intact no nystagmus is noted. Facial sensation is normal to touch throughout. The facial strength is normal throughout. Hearing is normal bilaterally to hand rub. Tongue is midline and moved [id number] without any difficulty. No dysarthria is noted. Shoulder shrug is normal bilaterally. Motor: Unable to assess the gait since patient has so many wires on her. The strength is 5 over 5 throughout. Normal tone and bulk. Cerebellum: Normal finger to nose bilaterally. Sensation: Sensation is decrease to touch in the right lower extremity. Reflexes (right/left):2+ Plantars are downgoing bilaterally. Results - Laboratory Findings CBC and BMP: 04/18/23 17:00 04/19/23 06:50 Abnormal Lab Findings: Abnormal Labs 04/18/23 04/18/23 04/18/23 10:45 10:45 10:45 Chloride 97 L BUN 21 H Glucose 122 H Hemoglobin A1c Triglycerides 190.00 H Ur Leukocyte Esterase Moderate H Urine WBC 7 H Ur Squamous Epith Cells 5 H Urine Mucus Rare H 04/19/23 04/19/23 06:50 06:50 Chloride BUN Glucose 163 H Hemoglobin A1c 7.7 H Triglycerides Ur Leukocyte Esterase Urine WBC Ur Squamous Epith Cells Urine Mucus Assessment and Plan Assessment: This is a 63-year-old woman who presented emergency department because of a 2 week history of right sided paresthesia of the upper and lower extremity, unsteady gait and feels her top of left foot is getting on the floor. Also is complaining of right posterior mid back pain without any radiation. To do the head and is negative. CT angiography shows left MCA occlusion at its origin. Subacute ischemic stroke (with the symptoms of pareshtesia of the right side, unsteady gait). Has left MCA occlusion on CTA. No IV TPA or intervention because duration of symptoms of 2 weeks. Diabetes mellitus Hypertension Hypothyroidism Plan: Patient was started on aspirin 325mg daily as well as Lipitor 80 mg daily at bedtime by the ED team. She was not on any antiplatelets at home. I started the patient on Plavix 75 mg a in addition. MRI the brain is ordered. I also ordered MRI of thoracic especially that the patient's having mid posterior back pain. 2-D echo is ordered and is pending Continue neuro checks Cardiac monitoring PT OT and AUTOMOTIVE SALES REPRESENTATIVE are consulted We'll defer the rest of the medical management to primary team For DVT prophylaxis the patient is on subcu heparin 5000 at every 12 hours. The plan was discussed with the patient and all her questions were answered. Thank you for the consultation Time with Patient: Greater than 30
[2023-04-19] MEDS: CLOPIDOGREL 75 MG TAB PO SCH (12:40)
[2023-04-19] MEDS: MAG HYDROX/AL HYDROX/SIMETH 30 ML CUP PO SCH ×3 (15:31→20:41)
[2023-04-19 16:13] LABS: Glucose,Whole Blood 185 mg/dL (70-110)
[2023-04-19] MEDS: SODIUM CHLORIDE 0.9% 1,000 ML IV SCH (18:00)
[2023-04-19 19:34] LABS: Glucose,Whole Blood 136 mg/dL (70-110)
[2023-04-19] MEDS: metFORMIN 500 MG TAB PO SCH (20:41)
[2023-04-19] MEDS: ATORVASTATIN 80 MG TAB PO SCH (20:41)
[2023-04-19 20:45] VITALS: RESP 16
[2023-04-20 05:52] LABS: Glucose,Whole Blood 130 mg/dL (70-110)
[2023-04-20] MEDS: metFORMIN 500 MG TAB PO SCH (06:19)
[2023-04-20] MEDS: LEVOTHYROXINE 112 MCG TAB PO SCH (06:19)
[2023-04-20] MEDS: ASPIRIN 325 MG TAB PO SCH (09:32)
[2023-04-20] MEDS: HEPARIN SODIUM,PORCINE 5,000 UNIT/ML 1 ML VIAL SQ SCH (09:32)
[2023-04-20] MEDS: CLOPIDOGREL 75 MG TAB PO SCH (09:32)
[2023-04-20] MEDS: FAMOTIDINE 20 MG/2 ML VIAL IV SCH (09:32)
[2023-04-20] MEDS: MAG HYDROX/AL HYDROX/SIMETH 30 ML CUP PO SCH (09:32)
[2023-04-20] MEDS: METOPROLOL TARTRATE 25 MG TAB PO SCH (09:33)
[2023-04-20 09:38] VITALS: TEMP 97.6
[2023-04-20] MEDS ORDERED: MAG HYDROX/AL HYDROX/SIMETH 30 ML CUP PO PRN (09:54)
[2023-04-20 11:19] LABS: Glucose,Whole Blood 210 mg/dL (70-110)
--- NOTE | 2023-04-20 11:21 | P.PN ---
Subjective Progress Note Date: 04/20/23 I am following-up with patient and she feels her symptoms is improving. She feels her numbness on the right side is improving. Denies of any new neurological issues. Objective - Vital Signs Vital signs: Vital Signs Temp 97.6 F 04/20/23 09:26 Pulse 80 04/20/23 09:26 Resp 16 04/20/23 09:26 BP 139/87 04/20/23 09:26 Pulse Ox 97 04/20/23 09:26 FiO2 Intake & Output 04/19/23 04/20/23 04/20/23 18:59 06:59 18:59 Intake Total 444 1080 Balance 444 1080 Intake: Oral 444 1080 Other: Voiding Method Toilet # Voids 1 - Exam GENERAL: The patient is lying in bed and is not in acute distress. NEUROLOGICAL: Higher mental function: The patient is awake, alert, oriented to self, place and time. Patient is following commands. No aphasia and no neglect. Cranial nerves: The pupils are round, equal and reactive to light and accommodation. Visual crane are full to confrontation throughout. Extraocular movement is intact no nystagmus is noted. Facial sensation is normal to touch throughout. The facial strength is normal throughout. Hearing is normal bilaterally to hand rub. Tongue is midline and moved [id number] without any difficulty. No dysarthria is noted. Shoulder shrug is normal bilaterally. Motor: The strength is 5 over 5 throughout. Normal tone and bulk. Cerebellum: Normal finger to nose bilaterally. Sensation: Normal sensation to touch throughout. Reflexes (right/left):2+ Plantars are downgoing bilaterally. Some of the workup during his hospital visit consisted of: CBC with differential is unremarkable Lipid panel is tried to start 190, cholesterol is 184, LDLs 103 and HDL is 42 TSH is 3.560 Hemoglobin A1c is 7.70. Calcium, sodium creatinine are within normal limits CT of the head is reported as no acute intracranial abnormality seen. I personally reviewed the CT and agree with the report. CT angiography of the neck is reported as mild less than 25 walks a normal right ICA stenosis CT angiography of the head is reported as left MCA occlusion at the origin. Thoracic x-ray: It is reported as moderate degenerative disc disease throughout especially midthoracic spine. No vertebral compression claps or malalignment. - Labs CBC & Chem 7: 04/18/23 17:00 04/19/23 06:50 Labs: Abnormal Lab Results - Last 24 Hours (Table) 04/19/23 04/19/23 04/19/23 Range/Units 06:50 16:11 19:32 POC Glucose (mg/dL) 185 H 136 H (70-110) mg/dL Hemoglobin A1c 7.7 H (<=6.0) % 04/20/23 Range/Units 05:50 POC Glucose (mg/dL) 130 H (70-110) mg/dL Hemoglobin A1c (<=6.0) % Assessment and Plan Assessment: This is a 63-year-old woman who presented emergency department because of a 2 week history of right sided paresthesia of the upper and lower extremity, unsteady gait and feels her top of left foot is getting on the floor. Also is complaining of right posterior mid back pain without any radiation. To do the head and is negative. CT angiography shows left MCA occlusion at its origin. Subacute ischemic stroke (with the symptoms of pareshtesia of the right side, unsteady gait). Has left MCA occlusion on CTA. No IV TPA or intervention because duration of symptoms of 2 weeks---symptoms improving. Diabetes mellitus and recent HbA1c: 7.7 Hypertension Hypothyroidism Plan: Patient was started on aspirin 325mg daily as well as Lipitor 80 mg daily at bedtime by the ED team. She was not on any antiplatelets at home. I started the patient on Plavix 75 mg a in addition. I recommend the patient to be on hemanth l antiplatelets then after 30 days stop ASA but continue Plavix indefinitely. MRI the brain and MRI of thoracic are pending. 2-D echo is pending. Continue neuro checks Cardiac monitoring PT OT and DURABILITY TECHNICIAN are consulted Recommend the patient to follow-up with Orthopedic team as outpatient especially with moderate degenerative changes of back. We'll defer the rest of the medical management to primary team For DVT prophylaxis the patient is on subcu heparin 5000 at every 12 hours. Upon discharge, recommend the patient to follow-up with neurologist as outpatient within 1-2 weeks. The plan was discussed with the patient and all her questions were answered. Time with Patient: Less than 30
--- NOTE | 2023-04-20 11:57 | CA ---
Transthoracic Echo Report Name: Nadia Snowden Age: 63 Gender: F : 1960 Exam Date: 04/19/2023 10:35 Exam Location: [facility] Ht (in): 61 Wt (lb): 160 Ordering Physician: Hayden Curiel MD Attending/Referring Phys: [id number], Veena Loan Officer Assistant Nba Amos Procedure CPT: Indications: Thrombus Cardiac Hx: Technical Quality: Fair Contrast 1: Total Dose (mL): Contrast 2: Total Dose (mL): MEASUREMENTS (Male / Female) Normal Values 2D ECHO RV Internal Dim ED PLAX 2.3 cm LVOT Diameter 1.8 cm Aortic Root Diameter 2.2 cm LA Systolic Diameter LX 2.7 cm 3.0 - 4.0 / 2.7 - 3.8 cm LV Diastolic Volume MOD BP 27.9 cm??? 67 - 155 / 56 - 104 cm??? LV Systolic Volume MOD BP 10.8 cm??? 22 - 58 / 19 - 49 cm??? LV Ejection Fraction MOD BP 61.3 % >= 55 % LV Diastolic Volume MOD 4C 34.9 cm??? LV Systolic Volume MOD 4C 13.0 cm??? LV Ejection Fraction MOD 4C 62.8 % LV Diastolic Length 4C 5.9 cm LV Systolic Length 4C 5.4 cm LV Diastolic Volume MOD 2C 22.1 cm??? LV Systolic Volume MOD 2C 8.1 cm??? LV Ejection Fraction MOD 2C 63.3 % LV Diastolic Length 2C 5.8 cm LV Systolic Length 2C 4.9 cm LA Volume 20.5 cm??? 18 - 58 / 22 - 52 cm??? LA Volume Index 11.4 cm???/m??? 16 - 28 cm???/m??? DOPPLER AV Peak Velocity 142.2 cm/s AV Peak Gradient 8.1 mmHg LVOT Peak Velocity 107.9 cm/s LVOT Peak Gradient 4.7 mmHg LVOT Velocity Time Integral 22.4 cm LVOT Stroke Volume 55.7 cm??? LVOT Stroke Volume Index 32.4 ml/m??? AV Area Cont Eq pk 1.9 cm??? MV Peak Velocity 136.0 cm/s MV Peak Gradient 7.4 mmHg MV Mean Velocity 62.6 cm/s MV Mean Gradient 2.0 mmHg MV Velocity Time Integral 54.6 cm MR Peak Velocity 316.5 cm/s MR Peak Gradient 40.1 mmHg Mitral E Point Velocity 90.2 cm/s Mitral A Point Velocity 78.3 cm/s Mitral E to A Ratio 1.2 MV Deceleration Time 317.9 ms TR Peak Velocity 123.8 cm/s TR Peak Gradient 6.1 mmHg Right Ventricular Systolic Press 11.1 mmHg PV Peak Velocity 108.5 cm/s PV Peak Gradient 4.7 mmHg FINDINGS Left Ventricle Normal LV size and wall thickness. Left ventricular ejection fraction is estimated at 55-60 %. Right Ventricle Normal right ventricular size. Right Atrium Normal right atrial size. Left Atrium Normal left atrial size. Mitral Valve Structurally normal mitral valve. Mild MR. Aortic Valve Trileaflet aortic valve. No aortic valve stenosis or regurgitation. Tricuspid Valve Structurally normal tricuspid valve. Trace TR. Pulmonic Valve Pulmonic valve not well visualized. No pulmonic regurgitation. Pericardium Normal pericardium. Aorta Normal size aortic root. CONCLUSIONS Left ventricular ejection fraction 55-60% Mild mitral regurgitation Trace tricuspid regurgitation No pericardial effusion Previewed by: Dr. Reuben Aguirre DO (Electronically Signed) Final Date: 20 April 2023 11:55
[2023-04-20 12:18] VITALS: BP 137/65; PULSE 71
--- NOTE | 2023-04-20 13:49 | MR ---
EXAMINATION TYPE: MR brain wo con DATE OF EXAM: 04/20/2023 1:28 PM CLINICAL INDICATION:Female, 63 years old with history of Neuro deficit, acute, stroke suspected; PHH, Neuro deficit. COMPARISON: CT 04/10/2023.. TECHNIQUE: Multi planar, multi sequence imaging was performed through the brain including: T1, T2, In version recovery, Diffusion weighted imaging, and gradient echo imaging. No gadolinium was given. FINDINGS: The parra-white junctions, ventricular system, basal cisterns appear unremarkable. Scattered foci of high T2 signal intensity are seen within the periventricular white matter. Midline structures show n o abnormality. Diffusion-weighted imaging shows no evidence of restricted diffusion. The susceptibili ty weighted images do not reveal any evidence for micro-hemorrhage. The bone marrow signal is within normal limits. Paranasal sinuses and mastoid air cells: Height T2 signal in the bilateral mastoid air cells. Paranas al mucosal thickening with high T2 signal present. Visualized orbits: Orbital contents are intact. IMPRESSION: 1. No evidence of intracranial mass or acute/subacute infarct. 2. Nonspecific white matter changes, likely secondary to small vessel ischemic disease.
--- NOTE | 2023-04-20 14:44 | MR ---
EXAMINATION TYPE: MR thoracic spine wo/w con DATE OF EXAM: 04/20/2023 1:53 PM CLINICAL INDICATION:Female, 63 years old with history of mid-posterior low back pain with unsteady ga it; PHH, Mid-posterior low back pain with unsteady gait. COMPARISON: Plain film 04/18/2023 TECHNIQUE: Multi planar, multi sequence imaging was performed utilizing: T1-weighted, short-tau inver alysha recovery and T2-weighted of the thoracic spine. IV Contrast: 7.5 cc Gadavist (none if empty) FINDINGS: Alignment: Alignment is within normal limits. Vertebral bodies have preserved heights. Spinal cord: Spinal cord is within normal limits for signal. Discs/osseous structures: Intervertebral disc signal is maintained. There is central disc protrusion versus osteophyte which impresses upon the or spinal cord at T5-T6 and T6-T7. Cord signal is maintain ed. No abnormal bony edema on inversion recovery sequences. Multilevel osteophyte formation and facet joint arthropathy. Scattered disc space narrowing. No abnormal postcontrast enhancement. IMPRESSION: 1. Central disc protrusions at T5-T6 and T6-T7 with mild impression upon the spinal cord. Cord signa l is maintained. No evidence for significant spinal canal stenosis. 2. No abnormal postcontrast enhancement. 3. Mild multilevel degeneration changes without evidence of significant neural foraminal stenosis.
[2023-04-20 16:02] LABS: Glucose,Whole Blood 136 mg/dL (70-110)
--- NOTE | 2023-04-20 22:36 | P.DS ---
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 Patient therefore discharged by neurologist for this Back pain with x-ray showing degenerative disc disease.MRI: disc protrusions at T5-T6 and T6-T7 with mild impression upon the spinal cord. Patient wants to follow up outpatient Hypertension Hyperlipidemia Hospital course: This is a pleasant 63 years old female with past medical history of hypertension and hyperlipidemia She presents because of numbness in her right side including both right arm and leg that's going on for 2 weeks on and off Patient he tolerated by neurologist, she underwent extensive workup including MRI of the brain which was negative for acute stroke MRI of the thoracic spine done for back pain showing Central disc protrusions at T5-T6 and T6-T7 with mild impression upon the spinal cord. Cord signal is maintained. No evidence for significant spinal canal stenosis. Neurologist recommended aspirin 325 mg and Plavix 1 month and then stop aspirin and continue with Plavix, patient is provided with verbal and written instructions with the above and she verbalized understanding and acceptance. Also risks including but not limited of risk of brain bleed unexplained for her in details and she verbalized understanding and acceptance Improved and today she complains of face or cheek. No weakness in the right side or other muscles. No other new complaints. I told the patient about the results of the MRI and with a recommendation for orthopedic consult, patient agreed but she does not with in the hospital for the orthopedic consult and wants to follow up with Dr. Lopez as an outpatient Case was discussed with the neurologist Dr. Rodriguez today. he cleared The patient for discharge Problems and management plan were discussed with the patient and he verbalized understanding and acceptance Patient was found stable and can be discharged home in guarded prognosis however he needs follow-up as an outpatient. Patient was instructed to follow up with PCP Dr. Martinez within one week and patient agrees Patient was instructed to follow up with urologist Dr. Brink in 2 weeks and she agrees Patient was instructed to follow up with Dr. Lopez 1 week after discharge and she agrees Physical exam Gen: patient is a AAOx3, no distress CVS: S1-S2, RRR, no murmur Lungs: B/L CTA, no wheezing Abdomen: soft, no distention, no tenderness, positive bowel sounds Extremity: no leg edema or induration Time spent more than 35 minutes Patient Condition at Discharge: Stable Plan - Discharge Summary Discharge Rx Participant: Yes New Discharge Prescriptions: New metFORMIN HCL [metFORMIN HCL ER Gastric] 1,000 mg PO BID #60 tab Famotidine [Pepcid] 20 mg PO BID #60 tablet Aspirin 325 mg PO DAILY #30 tab Atorvastatin [Lipitor] 80 mg PO HS #30 tab Clopidogrel [Plavix] 75 mg PO DAILY #30 tab Continue Levothyroxine Sodium [Levoxyl] 112 mcg PO DAILY Rosuvastatin [Crestor] 20 mg PO DAILY hydroCHLOROthiazide [Hydrodiuril] 25 mg PO DAILY Metoprolol Tartrate [Lopressor] 25 mg PO DAILY Losartan Potassium 100 mg PO DAILY Discontinued amLODIPine [Norvasc] 2.5 mg PO DAILY metFORMIN HCL [Glucophage] 500 mg PO BID Discharge Medication List Levothyroxine Sodium [Levoxyl] 112 mcg PO DAILY 09/28/15 [History] Losartan Potassium 100 mg PO DAILY 04/18/23 [History] Metoprolol Tartrate [Lopressor] 25 mg PO DAILY 04/18/23 [History] Rosuvastatin [Crestor] 20 mg PO DAILY 04/18/23 [History] hydroCHLOROthiazide [Hydrodiuril] 25 mg PO DAILY 04/18/23 [History] Aspirin 325 mg PO DAILY #30 tab 04/20/23 [Rx] Atorvastatin [Lipitor] 80 mg PO HS #30 tab 04/20/23 [Rx] Clopidogrel [Plavix] 75 mg PO DAILY #30 tab 04/20/23 [Rx] Famotidine [Pepcid] 20 mg PO BID #60 tablet 04/20/23 [Rx] metFORMIN HCL [metFORMIN HCL ER Gastric] 1,000 mg PO BID #60 tab 04/20/23 [Rx] Follow up Appointment(s)/Referral(s): Rae Brink MD [Medical Doctor] - 2 Weeks (Office is closed. Please call to schedule appointment) Eduar Lopez DO [Doctor of Osteopathic Medicine] - 1 Week (Office is closed. PLease call to schedule appointment) Rosie Martinez DO [Primary Care Provider] - 1-2 days (Office is closed. Please call to schedule appointment) Activity/Diet/Wound Care/Special Instructions: heart healthy diet activity is restricted till you see your doctor we recommend the patient to be on dual antiplatelets with aspirin 325 mg and plavix then after 30 days stop ASA but continue Plavix indefinitely we recommend to check your glucose 4 times per day, before each meal and at bed time, keep the results in a log book and bring it to your doctor on your appointment date if your glucose is less than 70 or more than 400 then call 911 and come to emergency room Discharge Disposition: HOME SELF-CARE
== END 2023-04-20 16:15 | disposition home or self-care (01) | DRG 68 ==
LOC: EC 10:20 → 3SCARD 18:35
PROVIDERS: ADMIT Hospitalist; ATTEND Hospitalist
DX: I66.02 Occlusion and stenosis of left middle cerebral artery (principal); I65.21 Occlusion and stenosis of right carotid artery; M21.372 Foot drop, left foot; E03.9 Hypothyroidism, unspecified; E78.5 Hyperlipidemia, unspecified; R00.1 Bradycardia, unspecified; I10 Essential (primary) hypertension; R29.701 NIHSS score 1; I08.1 Rheumatic disorders of both mitral and tricuspid valves; M51.24 Other intervertebral disc displacement, thoracic region; M51.34 Other intervertebral disc degeneration, thoracic region; Z79.02 Long term (current) use of antithrombotics/antiplatelets; Z79.84 Long term (current) use of oral hypoglycemic drugs; Z79.890 Hormone replacement therapy; Z79.899 Other long term (current) drug therapy; Z90.710 Acquired absence of both cervix and uterus
CPT/HCPCS: 36415; 70450; 70496; 70498; 70551; 72072; 72157; 80048; 80053; 80061; 81001; 83036; 84443; 84484; 85025; 85610; 85730; 93005; 93306; 96372; 96374; 99285

== ENCOUNTER → 2023-05-16 | Outpatient (CLI) | payer OTHER ==
--- NOTE | 2023-05-17 19:38 | MM ---
Reason for Exam: Screening (asymptomatic). Last mammogram was performed 1 year(s) and 1 month(s) ago. Patient History: Menarche at age 14. Patient has no children. Left ovary removed at age 49. Right ovary removed at age 49. Hysterectomy at age 49. Postmenopausal. Estrogen for 3 years from age 54 until age 57. Risk Values: Charisse 5 year model risk: 1.6%. NCI Lifetime model risk: 7.9%. Prior Study Comparison: 04/24/2019 Bilateral Screening Mammogram, [facility]. 04/18/2021 Bilateral Screening Mammogram, [facility]. 04/19/2022 Bilateral MG 3D screening mammo w/cad, [facility]. Tissue Density: The breast tissue is almost entirely fat. Findings: Analyzed By CAD. There is no suspicious group of microcalcifications or new suspicious mass in either breast. Overall Assessment: Negative, BI-RAD 1 Management: Screening Mammogram of both breasts in 1 year. . Patient should continue monthly self-breast exams. A clinical breast exam by your physician is recommended on an annual basis. This exam should not preclude additional follow-up of suspicious palpable abnormalities. Note on Charisse scores and lifetime risk: 1. A Charisse score greater than 3% is considered moderate risk. If this is the case, consider specialist referral to assess eligibility for a risk reducing agent. 2. If overall lifetime risk for the development of breast cancer is 20% or higher, the patient may qualify for future screening with alternating mammogram and breast MRI. Electronically signed and approved by: David Pedroza M.D. Radiologist
== END | disposition home or self-care (01) ==
LOC: RADMAMWWP 16:29
PROVIDERS: ATTEND Family Medicine
DX: Z12.31 Encounter for screening mammogram for malignant neoplasm of breast (principal); Z78.0 Asymptomatic menopausal state
CPT/HCPCS: 77063; 77067

== ENCOUNTER → 2024-08-26 | Outpatient (CLI) | payer BC ==
--- NOTE | 2024-08-26 11:56 | MM ---
Reason for Exam: Screening (asymptomatic). Last mammogram was performed 1 year(s) and 4 month(s) ago. Patient History: Menarche at age 14. Patient has no children. Left ovary removed at age 49. Right ovary removed at age 49. Hysterectomy at age 49. Postmenopausal. Estrogen for 3 years from age 54 until age 57. Risk Values: Charisse 5 year model risk: 1.7%. NCI Lifetime model risk: 7.7%. Prior Study Comparison: 04/18/2021 Bilateral Screening Mammogram, [facility]. 04/19/2022 Bilateral MG 3D screening mammo w/cad, [facility]. 05/16/2023 Bilateral MG 3D screening mammo w/cad, [facility]. Tissue Density: The breasts are almost entirely fatty. Findings: Analyzed By CAD. Right breast: There is no suspicious group of microcalcifications or new suspicious mass. Left breast: There is no suspicious group of microcalcifications or new suspicious mass. Overall Assessment: Negative, BI-RAD 1 Management: Screening Mammogram of both breasts in [address] [facility] will attempt to contact patient to return for supplemental views and ultrasound if indicated. Patient should continue monthly self-breast exams. A clinical breast exam by your physician is recommended on an annual basis. This exam should not preclude additional follow-up of suspicious palpable abnormalities. Note on Charisse scores and lifetime risk: 1. A Charisse score greater than 3% is considered moderate risk. If this is the case, consider specialist referral to assess eligibility for a risk reducing agent. 2. If overall lifetime risk for the development of breast cancer is 20% or higher, the patient may qualify for future screening with alternating mammogram and breast MRI. [facility], , 08/26/2024 11:53 AM. Electronically signed and approved by: Hayden Valderrama DO
--- NOTE | 2024-08-26 13:05 | BD ---
EXAMINATION TYPE: Axial Bone Density DATE OF EXAM: 08/26/2024 CLINICAL HISTORY: 64 years old Female. ICD-10 CODE: M89.9 DISORDER OF BONE, UNS , Additional History : Height: 60.1 Weight: 162 FRAX RISK QUESTIONS: Secondary Osteoporosis: yes 3. Menopause before 45: yes RISK FACTORS painful right hip, pt is a busdriver HISTORY OF: diabetes, cholesterol, thyroid, MEDICATIONS: bp meds, cholesterol meds, diabetic meds, vit d, calcium Thyroid Medications: yes for 11 yrs, synthroid EXAM MEASUREMENTS: Bone mineral densitometry was performed using the [employer] System. Bone mineral density as measured about the Lumbar spine is: ----- L1-L4(G/cm2): 1.434 T Score Values are as follows: ----- L1: 1.3 ----- L2: 1.7 ----- L3: 1.7 ----- L4: 3.5 ----- L1-L4: 2.1 Z Score Values are as follows: ----- L1: 2.4 ----- L2: 2.8 ----- L3: 2.8 ----- L4: 4.6 ----- L1-L4: 3.2 Bone mineral density has: Increased 10.5% since study of: 04.18.2021 Bone mineral density about the R hip (g/cm2): 0.944 Bone mineral density about the L hip (g/cm2): 1.027 T Score values are as follows: -----R Neck: -1.3 -----L Neck: -0.8 -----R Total: -0.5 -----L Total: 0.2 Z Score values are as follows: -----R Neck: -0.1 -----L Neck: 0.3 -----R Total: 0.3 -----L Total: 1.0 Bone mineral density has: Decreased -0.4% since study of: 04.18.2021 FRAX%s: The graph provided illustrates a 7.7% chance for a major osteoporotic fx and a 0.6% chance fo r the hips probability for fx in 10 years time. IMPRESSION: Osteopenia (T Score between -2.5 and -1). There is slightly increased risk of fracture and the patient may be considered for treatment. Re-Screen 2-5 years. NOTE: T-SCORE=SD OF THE YOUNG ADULT MEAN. [facility], , 08/26/2024 1:02 PM
== END | disposition home or self-care (01) ==
LOC: RADBDWWP 11:01
PROVIDERS: ATTEND Internal Medicine Geriatric Medicine
DX: Z12.31 Encounter for screening mammogram for malignant neoplasm of breast (principal); R92.313 Mammographic fatty tissue density, bilateral breasts; M85.851 Other specified disorders of bone density and structure, right thigh; Z78.0 Asymptomatic menopausal state
CPT/HCPCS: 77063; 77067; 77080

== ENCOUNTER → 2024-11-17 | Outpatient (CLI) | payer BC ==
--- NOTE | 2024-11-17 10:18 | US ---
EXAMINATION TYPE: US venous doppler duplex LE RT DATE OF EXAM: 11/17/2024 10:09 AM COMPARISON: NONE CLINICAL INDICATION: Female, 64 years old with history of RIGHT LOWER R22.41 LOCALIZED SWELLING, MASS AND DEON; rt leg pain x 2 weeks, no hx of dvt, currently on thinners TECHNIQUE: The lower extremity deep venous system is examined utilizing real time linear array sonog eulalio with graded compression, doppler sonography and color-flow sonography. Grayscale, color doppler , spectral doppler imaging performed of the deep veins of the lower extremities FINDINGS: SIDE PERFORMED: Right VESSELS IMAGED: Common Femoral Vein Deep Femoral Vein Greater Saphenous Vein * Femoral Vein Popliteal Vein Small Saphenous Vein * Proximal Calf Veins (* superficial vessels) Right Leg: Negative for DVT; There is normal flow, compressibility, vascular waveforms. IMPRESSION: No evidence for deep vein thrombosis. [facility], , 11/17/2024 10:16 AM
== END | disposition home or self-care (01) ==
LOC: RADUSWWP 09:42
PROVIDERS: ATTEND Internal Medicine Geriatric Medicine
DX: R22.41 Localized swelling, mass and lump, right lower limb (principal)